=== PATIENT | male | born 1965 | race Two or more races ===

== ENCOUNTER → 2024-11-13 | Emergency (ER) | payer OTHER ==
[~2024-11-13] VITALS: Ht 160 cm; Wt 75.7 kg
[~2024-11-13] MED LIST: DEXAMETHASONE SODIUM PHOSPHATE 4 MG/ML VIAL IM STA; DEXAMETHASONE SODIUM PHOSPHATE 4 MG/ML VIAL ONE; IMBRUVICA140 MG PO
[2024-11-13 10:43] LABS: HEMATOCRIT 45.4 % (39.0-48.0); MEAN CELL VOLUME 88.5 fL (80.0-100.00); MEAN CORPUSCULAR HEMOGLOBIN 29.3 pg (27.00-32.0); MEAN CORPUSCULAR HGB CONC 33.1 g/dl (32.0-36.0); PLATELET COUNT 218 K/uL (150-450); RED BLOOD COUNT 5.13 M/uL (4.00-6.00)
[2024-11-13 11:02] LABS: CALCIUM 9.2 mg/dL (8.5-10.1); CREATININE SERUM 1.44 mg/dL (0.70-1.30); GFR 50.56; POTASSIUM 4.1 mEq/L (3.5-5.1)
== END | disposition home or self-care (01) ==
LOC: ER 08:34
PROVIDERS: General Practice
DX: R53.81 Other malaise (principal); Z20.822 Contact with and (suspected) exposure to COVID-19